=== PATIENT | male | born 1995 | race Caucasian/White ===

== ENCOUNTER 2019-03-30 16:41 | Emergency (ER) | payer OTHER ==
[~2019-03-30] VITALS: Ht 167.6 cm; Wt 72.1 kg
[~2019-03-30 16:41] MED LIST: KETO10TAB PO
[2019-03-30] MEDS ORDERED: LIDOCAINE 2% MDV 20 ML VIAL SC ONE (17:15)
[2019-03-30] MEDS ORDERED: ADACEL/BOOSTRIX VACCINE (DIPHTH/PERTUSS/ACELL/TETANUS)0.5ML SYR (90715) IM ONE (17:15)
[2019-03-30] MEDS ORDERED: NEOSPORIN OINT 0.9 GM PKT (FLOOR STOCK) TOP ONE (17:45)
[2019-03-30 17:51] VITALS: BP 126/67
== END 2019-03-30 18:13 | disposition home or self-care (01) ==
LOC: M ED 16:41
DX: S61.211A Laceration without foreign body of left index finger without damage to nail, initial encounter (principal); W26.0XXA Contact with knife, initial encounter; Y92.89 Other specified places as the place of occurrence of the external cause; Y99.0 Civilian activity done for income or pay

== ENCOUNTER 2021-09-20 22:22 | Emergency (ER) | payer OTHER, SELFPAY ==
[~2021-09-20] VITALS: Ht 170.2 cm; Wt 79.5 kg
--- OUTSIDE RECORDS SUMMARY | 2021-09-20 22:30 | CCD ---
Author Author [facility] Organization [facility] Address Unknown Phone Unavailable Support Name Relationship Address Phone APPLEBEBAUTISTA Next Of Kin [address] [place] [address] BRUNO [employer] [place] Next Of Kin [address] [place] [address] CHERYL KHAN Next Of Kin [address] [place], [place] [id number] Re-disclosure Warning The records that you are about to access may contain information from federally-assisted alcohol or drug abuse programs. If such information is present, then the following federally mandated warning applies: This information has been disclosed to you from records protected by federal confidentiality rules (42 CFR part 2). The federal rules prohibit you from making any further disclosure of this information unless further disclosure is expressly permitted by the written consent of the person to whom it pertains or as otherwise permitted by 42 CFR part 2. A general authorization for the release of medical or other information is NOT sufficient for this purpose. The Federal rules restrict any use of the information to criminally investigate or prosecute any alcohol or drug abuse patient.The records that you are about to access may contain highly sensitive health information, the redisclosure of which is protected by Article 27-F of the [facility] Public Health law. If you continue you may have access to information: Regarding HIV / AIDS; Provided by facilities licensed or operated by the [facility] Office of Mental Health; or Provided by the [facility] Office for People With Developmental Disabilities. If such information is present, then the following [facility] mandated warning applies: This information has been disclosed to you from confidential records which are protected by state law. State law prohibits you from making any further disclosure of this information without the specific written consent of the person to whom it pertains, or as otherwise permitted by law. Any unauthorized further disclosure in violation of state law may result in a fine or retirement sentence or both. A general authorization for the release of medical or other information is NOT sufficient authorization for further disc losure. Medications Medication Brand Name Start Date Product Form Dose Route Admi nistrative Instructions Pharmacy Instructions Status Indications Reaction Description Data Source(s) 0.12 % 02/11/2021 12:00:00 AM EDT mouthwash 473 SWISH 15MLS BY MOUTH FOR 30 SECONDS THEN SPIT OUT TWO TIMES A DAY NEEDED SWISH 15MLS BY MOUTH FOR 30 SECONDS THEN SPIT OUT TWO TIMES A DAY NEEDED SOLD: 02/12/2021 [facility] Amoxicillin 875 MG / Clavulanate 125 MG Oral Tablet 87 5-125 mg AMOXICILLIN/POTASSIUM CLAV 02/11/2021 12:00:00 AM EDT tablet 14 TAKE ONE TABLET BY MOUTH EVERY 12 HOURS FOR 7 DAYS TAKE ONE TABLET BY MOUTH EVERY 12 HOURS FOR 7 DAYS SOLD: 02/12/2021 [facility] 5-325 mg 01/15/2021 12:00:00 AM EDT tablet 8 TAKE ONE TABLET BY MOUTH EVERY 6 HOURS NEEDED FOR PAIN MAXIMUM DAILY DOSE = 4 TABLETS TAKE ONE TABLET BY MOUTH EVERY 6 HOURS NEEDED FOR PAIN MAXIMUM DAILY DOSE = 4 TABLETS SOLD: 01/17/2021 [facility] 0.12 % 01/15/2021 12:00:00 AM EDT mouthwash 473 TAKE 15ML BY MOUTH SWISH FOR 30 SECONDS AND SPIT FOUR TIMES A DAY TAKE 15ML BY MOUTH SWISH FOR 30 SECONDS AND SPIT FOUR TIMES A DAY SOLD: 01/17/2021 [facility] 600 mg 12/29/2020 12:00:00 AM EDT tablet 21 TAKE ONE TABLET BY MOUTH THREE TIMES A DAY WITH FOOD TAKE ONE TABLET BY MOUTH THREE TIMES A DAY WITH FOOD S OLD: 12/29/2020 [facility] 500 mg 12/29/2020 12:00:00 AM EDT tablet 21 TAKE ONE TABLET BY MOUTH THREE TIMES A DAY FOR 7 DAYS TAKE ONE TABLET BY MOUTH THREE TIMES A DAY FOR 7 DAYS SOLD: 12/29/2020 [facility] Insurance Providers Payer name Policy type / Coverage type Policy ID Covered alliance party ID Covered alliance party's relationship to bazzi Policy Bazzi Plan Information [employer] COMP [id number] SP [id number] ANNE [id number] SP [id number] [employer] COMMUNITY PLAN MCDO [id number] SP [id number] MEDICAID [id number] SP [id number] [facility] O [id number] S [id number] MEDICAID M [id number] S [id number] SELF PAY ONLY [id number] SP [id number] Problems, Conditions, and Diagnoses No Information Surgeries/Procedures No Information Results ID Date Data Source 7 09/10/2021 12:00:00 AM EST [facility] Name Value Range Interpretation Code Description Data Mary rce(s) Supporting Document(s) SARS-CoV2 Rapid Antigen Negative [facility] and reported by [facility]. Procedure Social History No Information
[2021-09-20] MEDS ORDERED: BOOSTRIX/ADACEL VACCINE (DIPHTH/PERTUSS/ACELL/TETANUS) 0.5ML SYR IM ONE (23:15)
[2021-09-21 04:14] VITALS: BP 142/78
[2021-09-21] MEDS ORDERED: ANEXSIA, NORCO 7.5MG/325MG TABLET(HYDROCODONE/APAP) PO ONE (05:45)
[2021-09-21] MEDS ORDERED: NORCO 5/325MG TABLET (BULK FOR ED) PO ONE (05:45)
[2021-09-21] MEDS ORDERED: HYDR-3713 PO (06:10)
--- OUTSIDE RECORDS SUMMARY | 2021-09-21 06:13 | CCD ---
Author Author [facility] Organization [facility] Address Unknown Phone Unavailable Support Name Relationship Address Phone ARLEN SOTO Next Of Kin [address] [place] [address] APPLEBEBAUTISTA Next Of Kin [address] [place] [address] [place] [employer] [place] Next Of Kin [address] [place] [address] ERINCHERYL TUCKER Next Of Kin [address] [place] [address] Re-disclosure Warning The records that you are [...] is protected by Article 27-F of the [facility] Public Health law. If you continue you may have access to information: Regarding HIV / AIDS; Provided by facilities licensed or operated by the [facility] Office of Mental Health; or Provided by the [facility] Office for People With Developmental Disabilities. If such information is present, then the following [facility] mandated warning applies: This information has been [...] law may result in a fine or usp sentence or both. A general authorization for [...] type / Coverage type Policy ID Covered democrat ID Covered democrat's relationship to bazzi Policy Bazzi Plan Information SELF PAY ONLY [id number] SP [id number] [employer] COMP [id number] SP [id number] APPLEBEES [id number] SP [id number] [facility] COMMUNITY [facility]AN MCDO [id number] SP [id number] MEDICAID [id number] SP [id number] [facility] O [id number] S [id number] MEDICAID M [id number] S [id number] Problems, Conditions, and Diagnoses No Information Surgeries/Procedures No Information Results ID Date Data Source 09/10/2021 12:00:00 AM EST [facility] Name Value Range Interpretation Code Description Data Mary rce(s) Supporting Document(s) SARS-CoV2 [facility]igen [facility] and reported by [facility]. Procedure Social History No Information
[2021-09-21] MEDS ORDERED: CEPH500C PO (06:15)
[2021-09-21] MEDS ORDERED: CEPHALEXIN 500 MG CAP PO ONE (06:20)
--- NOTE | 2021-09-21 13:20 | ER ---
ER CONSULTATION DATE: 09/21/2021 REASON FOR CONSULTATION: Left thumb distal phalanx fracture. HISTORY OF PRESENT ILLNESS: I was called by Dr. Arias, the QMP at [facility] ED on 09/21/2021 at approximately 5:30 a.m. According to the provider the patient slammed their thumb into a car door. PHYSICAL EXAMINATION: Per the QMP this is a closed neurovascularly intact injury, no open fracture. IMAGING DATA: Radiographs were reviewed. The report is dictated. There is no formal report as of yet that I can access. To my interpretation there appears to be a nondisplaced tuft fracture distal phalanx left thumb. No obvious other injury that I can appreciate. ASSESSMENT AND PLAN: This is a 26-year-old male with nondisplaced tuft fracture left distal phalanx thumb, closed injury. Recommend splinting, rest, elevation, ice, and follow up this week as soon as possible. Per the provider this is a closed injury. They understand the plan, were in agreement and had no further questions or concerns. I have also reached out to our office to recheck the patient and follow up as well.
== END 2021-09-21 06:31 | disposition home or self-care (01) ==
LOC: M ED 22:22
DX: S62.525A Nondisplaced fracture of distal phalanx of left thumb, initial encounter for closed fracture (principal); S61.102A Unspecified open wound of left thumb with damage to nail, initial encounter; W23.0XXA Caught, crushed, jammed, or pinched between moving objects, initial encounter; Y92.89 Other specified places as the place of occurrence of the external cause; Y93.9 Activity, unspecified; Y99.0 Civilian activity done for income or pay

== ENCOUNTER 2023-05-26 15:21 | Emergency (ER) | payer SELFPAY ==
[~2023-05-26] VITALS: Ht 167.6 cm; Wt 87.8 kg
[~2023-05-26 15:21] MED LIST changes: +CEPH500C PO; +HYDR-3713 PO
[2023-05-26 15:22] VITALS: BP 143/91; TEMP 98; O2SAT 97
[2023-05-26] MEDS ORDERED: NS 1,000 ML IV ONE (18:00)
[2023-05-26] MEDS ORDERED: PIPERACILLIN/TAZOBACTAM SOD 4.5 GM in D5W MINI-BAG PLUS 50 ML IV ONE (18:30)
[2023-05-26] MEDS ORDERED: dexAMETHasone 20MG/5ML VIAL IV ONE (18:30)
[2023-05-26 18:35] LABS: BASO # 0.1 10^3/uL (0.0-0.2); BASO % 0.6 % (0.0-1.0); EOS % 0.1 % (0.0-3.0); HEMATOCRIT 44.2 % (42.0-52.0); HEMOGLOBIN 15.2 g/dl (13.5-17.5); LYMPH # 1.9 10^3/uL (1.5-5.0); LYMPH % 13.9 % (24.0-44.0); MEAN CORPUSCULAR HEMOGLOBIN 31.6 pg (27.0-33.0); MEAN CORPUSCULAR HGB CONC 34.4 g/dl (32.0-36.5); MEAN CORPUSCULAR VOLUME 91.9 fl (80.0-96.0); MONO # 0.9 10^3/uL (0.0-0.8); MONO % 6.5 % (2.0-8.0); NEUTROPHILS # 10.6 10^3/uL (1.5-8.5); NEUTROPHILS % 78.4 % (36.0-66.0); PLATELET COUNT, AUTOMATED 315 10^3/uL (150-450); RED BLOOD COUNT 4.81 10^6/uL (4.30-6.10); WHITE BLOOD COUNT 13.5 10^3/uL (4.0-10.0)
[2023-05-26 18:59] LABS: ALBUMIN 4.2 G/DL (3.2-5.2); ALKALINE PHOSPHATASE 79 U/L (46-116); ALT/SGPT 24 U/L (7.0-40); AST/SGOT 11 U/L (<34); BILIRUBIN,DIRECT 0.2 MG/DL (<0.4); BILIRUBIN,TOTAL 0.6 MG/DL (0.3-1.2); BLOOD UREA NITROGEN 13 MG/DL (9-23); CALCIUM LEVEL 9.2 MG/DL (8.5-10.1); CARBON DIOXIDE LEVEL 28 MMOL/L (20-31); CHLORIDE LEVEL 103 MMOL/L (98-107); CREATININE FOR GFR 0.71 MG/DL (0.70-1.30); GLOMERULAR FILTRATION RATE > 60.0 (>60); GLUCOSE, FASTING 88 MG/DL (60-100); POTASSIUM SERUM 3.8 MMOL/L (3.5-5.1); SODIUM LEVEL 139 MMOL/L (136-145); TOTAL PROTEIN 7.9 G/DL (5.7-8.2)
[2023-05-26] MEDS ORDERED: ISOVUE-370 76% 100ML VIAL As Ordered ONE (19:01)
[2023-05-26 19:06] LABS: ERYTHROCYTE SEDIMENTATION RATE 60 mm/hr (0-15)
[2023-05-26] MEDS ORDERED: LIDOCAINE W/EPINEPHRINE 1% 20ML VIAL SC ONE (20:00)
[2023-05-26] MEDS ORDERED: AMOX875T2 PO (20:35)
== END 2023-05-26 20:55 | disposition home or self-care (01) ==
LOC: M ED 15:21
DX: L03.211 Cellulitis of face (principal); L02.01 Cutaneous abscess of face; M60.9 Myositis, unspecified; Z79.899 Other long term (current) drug therapy
CPT/HCPCS: 10060; 70491; 80048; 80076; 83605; 85025; 85652; 86140; 87040; 87070; 87077; 87186; 87205; 96365; 96375; 99283; J1100; J2543; Q9967

== ENCOUNTER 2024-10-08 15:46 | Emergency (ER) | payer SELFPAY ==
[~2024-10-08] VITALS: Ht 167.6 cm; Wt 89.6 kg
[~2024-10-08 15:46] MED LIST changes: +AMOX875T2 PO
[2024-10-08 15:49] VITALS: BP 153/81; TEMP 97; O2SAT 98
[2024-10-08 16:37] LABS: BASO # 0.1 10^3/uL (0.0-0.2); BASO % 0.7 % (0.0-1.0); EOS # 0.1 10^3/uL (0.0-0.5); EOS % 0.4 % (0.0-3.0); HEMATOCRIT 45.8 % (42.0-52.0); HEMOGLOBIN 16.2 g/dl (13.5-17.5); LYMPH % 15.9 % (24.0-44.0); MEAN CORPUSCULAR HEMOGLOBIN 32.4 pg (27.0-33.0); MEAN CORPUSCULAR HGB CONC 35.4 g/dl (32.0-36.5); MEAN CORPUSCULAR VOLUME 91.6 fl (80.0-96.0); MONO # 0.7 10^3/uL (0.0-0.8); MONO % 5.5 % (2.0-8.0); NEUTROPHILS # 9.5 10^3/uL (1.5-8.5); NEUTROPHILS % 77.2 % (36.0-66.0); PLATELET COUNT, AUTOMATED 274 10^3/uL (150-450); WHITE BLOOD COUNT 12.4 10^3/uL (4.0-10.0)
[2024-10-08 17:01] LABS: BLOOD UREA NITROGEN 15 MG/DL (9-23); CALCIUM LEVEL 9.7 MG/DL (8.5-10.1); CARBON DIOXIDE LEVEL 29 MMOL/L (20-31); CHLORIDE LEVEL 104 MMOL/L (98-107); CREATININE FOR GFR 0.83 MG/DL (0.70-1.30); GLOMERULAR FILTRATION RATE > 60.0 (>60); GLUCOSE, FASTING 98 MG/DL (60-100); POTASSIUM SERUM 4.2 MMOL/L (3.5-5.1); SODIUM LEVEL 141 MMOL/L (136-145)
[2024-10-08] MEDS: ACETAMINOPHEN 500 MG TAB PO ONE (19:05)
[2024-10-08] MEDS ORDERED: ISOVUE-370 76% 100ML VIAL As Ordered ONE (19:21)
[2024-10-08] MEDS: LIDOCAINE W/EPINEPHRINE 1% 20ML VIAL SC ONE (20:25)
[2024-10-08] MEDS: DOXYCYCLINE HYCLATE 100MG TABLET PO ONE (21:10)
[2024-10-08] MEDS ORDERED: DOXY-441 PO (21:10)
== END 2024-10-08 21:20 | disposition home or self-care (01) ==
LOC: M ED 15:46
DX: L02.01 Cutaneous abscess of face (principal); L03.211 Cellulitis of face; Z79.1 Long term (current) use of non-steroidal anti-inflammatories (NSAID); Z79.2 Long term (current) use of antibiotics
CPT/HCPCS: 10060; 36415; 70491; 80048; 85025; 87070; 87077; 87186; 99284; Q9967